=== PATIENT | female | born 1940 | race Caucasian/White ===

== ENCOUNTER 2024-01-17 14:00 | Emergency (ER) | payer MEDICARE ==
[~2024-01-17] VITALS: Ht 152.4 cm; Wt 68.2 kg
[~2024-01-17 14:00] MED LIST: FAMO20TA8 PO; LEVE500T PO; LEVO75TA7 PO; PROP20TA6 PO
[2024-01-17 14:59] VITALS: BP 140/62; PULSE 60; RESP 14; TEMP 97.8; O2SAT 98
== END 2024-01-17 15:01 | disposition home or self-care (01) ==
LOC: ER 14:00
DX: H11.31 Conjunctival hemorrhage, right eye (principal); R56.9 Unspecified convulsions; G89.29 Other chronic pain; M19.90 Unspecified osteoarthritis, unspecified site; Z88.0 Allergy status to penicillin; Z88.5 Allergy status to narcotic agent; Z79.899 Other long term (current) drug therapy; Z90.710 Acquired absence of both cervix and uterus
CPT/HCPCS: 99281